=== PATIENT | female | born 1955 | race Caucasian/White ===

== ENCOUNTER 2018-03-04 12:50 | Outpatient (REF) | payer OTHER, SELFPAY ==
[2018-03-04 20:43] LABS: ALT 23 U/L (12-78); AST 26 U/L (15-37); Albumin 4.5 g/dL (3.4-5.0); Alkaline Phosphatase 82 U/L (46-116); Anion Gap 14.4 mmol/L (3-11); BUN 17 mg/dL (7-18); Bilirubin, Total 0.5 mg/dL (0.2-1.0); CO2 22.6 mmol/L (21.0-32.0); Calcium 9.9 mg/dL (8.5-10.1); Chloride 102 mmol/L (98-107); Cholesterol 266 mg/dL (50-200); Glucose 90 mg/dL (70-100); HDL Cholesterol 85 mg/dL (40-60); LDL CHOLESTEROL 151 mg/dL (<100); Potassium 4.9 mmol/L (3.5-5.1); Sodium 139 mmol/L (136-145); Total Protein 7.6 g/dL (6.4-8.2); Triglyceride 136 mg/dL (30-150)
[2018-03-04 20:48] LABS: Hemoglobin A1C 5.7 % (4.5-6.2)
== END 2018-03-04 12:51 ==
LOC: NCHCN 12:50
PROVIDERS: PCP Physician Assistant Medical; Visit Provider Physician Assistant Medical
DX: I10 Essential (primary) hypertension (principal); R79.89 Other specified abnormal findings of blood chemistry; R73.01 Impaired fasting glucose
CPT/HCPCS: 80053; 80061; 83721; 83036

== ENCOUNTER 2019-02-17 11:32 | Outpatient (REF) | payer MEDICARE, OTHER, SELFPAY ==
[2019-02-17 22:17] LABS: ALT 47 U/L (12-78); AST 35 U/L (15-37); Albumin 4.1 g/dL (3.4-5.0); Alkaline Phosphatase 78 U/L (46-116); Anion Gap 13.1 mmol/L (3-11); BUN 16 mg/dL (7-18); Bilirubin, Total 0.3 mg/dL (0.2-1.0); CO2 22.9 mmol/L (21.0-32.0); CREATININE 0.62 mg/dL (0.55-1.02); Calcium 9.7 mg/dL (8.5-10.1); Chloride 106 mmol/L (98-107); Glucose 102 mg/dL (70-100); Potassium 4.9 mmol/L (3.5-5.1); Sodium 142 mmol/L (136-145); Total Protein 7.2 g/dL (6.4-8.2)
[2019-02-17 22:40] LABS: Hemoglobin A1C 5.4 % (4.5-6.2)
== END 2019-02-17 11:52 ==
LOC: NCHCN 11:32
PROVIDERS: PCP Physician Assistant Medical; Visit Provider Physician Assistant Medical
DX: R73.01 Impaired fasting glucose (principal); I10 Essential (primary) hypertension; R79.89 Other specified abnormal findings of blood chemistry
CPT/HCPCS: 80053; 83036

== ENCOUNTER 2020-08-17 15:38 | Outpatient (REF) | payer MEDICARE, SELFPAY ==
[2020-08-17 16:20] LABS: ALT 39 U/L (14-59); AST 25 U/L (15-37); Albumin 4.4 g/dL (3.4-5.0); Alkaline Phosphatase 78 U/L (46-116); Anion Gap 7.6 mmol/L (3-11); BUN 19 mg/dL (7-18); Bilirubin, Total 0.3 mg/dL (0.2-1.0); CO2 26.4 mmol/L (21.0-32.0); CREATININE 0.79 mg/dL (0.55-1.02); Calcium 10.3 mg/dL (8.5-10.1); Calculated LDL 183 mg/dL (<100); Chloride 106 mmol/L (98-107); Cholesterol 282 mg/dL (<200); Glucose 107 mg/dL (74-106); HDL Cholesterol 77 mg/dL (40-60); Potassium 5.1 mmol/L (3.5-5.1); Sodium 140 mmol/L (136-145); Total Protein 7.4 g/dL (6.4-8.2); Triglyceride 114 mg/dL (<150)
== END 2020-08-17 15:58 ==
LOC: NCHCN 15:38
PROVIDERS: PCP Physician Assistant Medical; Visit Provider Physician Assistant Medical
DX: E78.5 Hyperlipidemia, unspecified (principal); I10 Essential (primary) hypertension
CPT/HCPCS: 80053; 80061

== ENCOUNTER 2021-08-15 20:16 | Outpatient (REF) | payer MEDICARE, SELFPAY ==
[2021-08-15 21:45] LABS: Hemoglobin A1C 5.3 % (<5.7)
[2021-08-15 21:49] LABS: ALT 48 U/L (14-59); AST 42 U/L (15-37); Albumin 4.4 g/dL (3.4-5.0); Alkaline Phosphatase 81 U/L (46-116); Anion Gap 13.1 mmol/L (3-11); BUN 12 mg/dL (7-18); Bilirubin, Total 0.4 mg/dL (0.2-1.0); CO2 23.9 mmol/L (21.0-32.0); CREATININE 0.7 mg/dL (0.55-1.02); Calcium 10.1 mg/dL (8.5-10.1); Chloride 106 mmol/L (98-107); Glucose 106 mg/dL (74-106); Potassium 3.8 mmol/L (3.5-5.1); Sodium 143 mmol/L (136-145); Total Protein 7.6 g/dL (6.4-8.2)
== END 2021-08-15 20:17 | disposition home or self-care (01) ==
LOC: NCHCN 20:16
PROVIDERS: PCP Physician Assistant Medical; Visit Provider Physician Assistant Medical
DX: R73.03 Prediabetes (principal); E78.5 Hyperlipidemia, unspecified; I10 Essential (primary) hypertension; R79.89 Other specified abnormal findings of blood chemistry
CPT/HCPCS: 80053; 83036

== ENCOUNTER 2022-08-30 13:13 | Outpatient (REF) | payer MEDICARE, OTHER, SELFPAY ==
[2022-08-30 15:25] LABS: HCT 35.7 % (36.0-46.0); HGB 12.3 g/dL (11.2-15.7); MCH 34.5 pg (27.0-33.0); MCHC 34.5 % (32.0-36.0); MCV 100 fL (80-95); MPV 11.9 fL (8.0-11.0); Platelet Count 240 10^3/uL (130-400); RBC 3.57 10^6/uL (3.93-5.22); RDW 13.3 % (11.7-14.6); RDW-SD 49.3 fL
[2022-08-30 15:42] LABS: ALT 41 U/L (14-59); AST 35 U/L (15-37); Albumin 4.4 g/dL (3.4-5.0); Alkaline Phosphatase 85 U/L (46-116); Anion Gap 11.8 mmol/L (3-11); BUN 11 mg/dL (7-18); Bilirubin, Total 0.4 mg/dL (0.2-1.0); CO2 24.2 mmol/L (21.0-32.0); CREATININE 0.7 mg/dL (0.55-1.02); Calcium 9.9 mg/dL (8.5-10.1); Chloride 105 mmol/L (98-107); Estimated GFR 93.56 (mL/min/1.73m2); Glucose 115 mg/dL (74-106); Sodium 141 mmol/L (136-145); Total Protein 7.9 g/dL (6.4-8.2)
[2022-08-30 15:49] LABS: Hemoglobin A1C 5.3 % (<5.7)
== END 2022-08-30 13:14 | disposition home or self-care (01) ==
LOC: NCHCN 13:13
PROVIDERS: PCP Physician Assistant Medical; Visit Provider Physician Assistant Medical
DX: R73.03 Prediabetes (principal); R79.89 Other specified abnormal findings of blood chemistry
CPT/HCPCS: 80053; 85027; 83036

== ENCOUNTER 2023-09-13 11:28 | Outpatient (CLI) | payer MEDICARE, OTHER, SELFPAY ==
[2023-09-13 11:00] LABS: HCT 35.2 % (36.0-46.0); HGB 12.5 g/dL (11.2-15.7); MCH 34.6 pg (27.0-33.0); MCHC 35.5 % (32.0-36.0); MCV 98 fL (80-95); MPV 10.4 fL (8.0-11.0); Platelet Count 241 10^3/uL (130-400); RBC 3.61 10^6/uL (3.93-5.22); RDW 12.6 % (11.7-14.6); RDW-SD 45.3 fL; WBC 9.21 10^3/uL (4.4-10.8)
[2023-09-13 11:12] LABS: Hemoglobin A1C 5.4 % (<5.7)
[2023-09-13 11:34] LABS: ALT 36 U/L (14-59); AST 30 U/L (15-37); Albumin 4.1 g/dL (3.4-5.0); Alkaline Phosphatase 81 U/L (46-116); Anion Gap 12.1 mmol/L (3-11); BUN 12 mg/dL (7-18); Bilirubin, Total 0.4 mg/dL (0.2-1.0); CO2 23.9 mmol/L (21.0-32.0); CREATININE 0.7 mg/dL (0.55-1.02); Calcium 10.2 mg/dL (8.5-10.1); Calculated LDL 132 mg/dL (<100); Chloride 104 mmol/L (98-107); Cholesterol 260 mg/dL (<200); Estimated GFR 92.98 (mL/min/1.73m2); Glucose 115 mg/dL (74-106); HDL Cholesterol 97 mg/dL (40-60); Sodium 140 mmol/L (136-145); Total Protein 7.8 g/dL (6.4-8.2); Triglyceride 156 mg/dL (<150)
== END 2023-09-13 11:29 | disposition home or self-care (01) ==
LOC: LBO 11:29
PROVIDERS: PCP Physician Assistant Medical; Visit Provider Physician Assistant Medical
DX: I10 Essential (primary) hypertension (principal); R73.03 Prediabetes
CPT/HCPCS: 36415; 80053; 80061; 85027; 83036

== ENCOUNTER 2024-11-19 17:00 | Outpatient (REF) | payer MEDICARE, BC, SELFPAY ==
[2024-11-19 17:04] LABS: Anion Gap 13.1 mmol/L (3-11); BUN 15 mg/dL (7-18); CO2 24.9 mmol/L (21.0-32.0); CREATININE 0.8 mg/dL (0.55-1.02); Calcium 10.6 mg/dL (8.5-10.1); Chloride 104 mmol/L (98-107); Estimated GFR 78.72 (mL/min/1.73m2); Glucose 118 mg/dL (74-106); Sodium 142 mmol/L (136-145)
== END 2024-11-19 17:01 | disposition home or self-care (01) ==
LOC: NCHCN 17:00
PROVIDERS: PCP Physician Assistant Medical; Visit Provider Physician Assistant Medical
DX: I10 Essential (primary) hypertension (principal)
CPT/HCPCS: 80048

== ENCOUNTER 2025-05-28 11:52 | Outpatient (CLI) | payer MEDICARE, BC, SELFPAY ==
[2025-05-28 12:03] LABS: HCT 33.1 % (36.0-46.0); HGB 11.6 g/dL (11.2-15.7); MCH 35.9 pg (27.0-33.0); MCHC 35.0 % (32.0-36.0); MCV 103 fL (80-95); MPV 10.1 fL (8.0-11.0); Platelet Count 253 10^3/uL (130-400); RBC 3.23 10^6/uL (3.93-5.22); RDW 13.8 % (11.7-14.6); RDW-SD 52.4 fL; WBC 8.74 10^3/uL (4.4-10.8)
[2025-05-28 12:32] LABS: ALT 35 U/L (14-59); AST 30 U/L (15-37); Albumin 3.9 g/dL (3.4-5.0); Alkaline Phosphatase 77 U/L (46-116); Anion Gap 11.5 mmol/L (3-11); BUN 9 mg/dL (7-18); Bilirubin, Total 0.3 mg/dL (0.2-1.0); CO2 25.5 mmol/L (21.0-32.0); Calcium 10.1 mg/dL (8.5-10.1); Chloride 101 mmol/L (98-107); Glucose 95 mg/dL (74-106); Potassium 4.1 mmol/L (3.5-5.1); Sodium 138 mmol/L (136-145); Total Protein 7.5 g/dL (6.4-8.2)
[2025-05-28 13:05] LABS: Vitamin D 25 Total 86 ng/mL (30-100)
[2025-05-28 23:53] LABS: Hepatitis C Ab w Rflx HCV PCR Negative (Negative)
== END 2025-05-28 11:53 | disposition home or self-care (01) ==
LOC: LBO 11:52
PROVIDERS: PCP Physician Assistant Medical; Visit Provider Physician Assistant Medical
DX: R74.8 Abnormal levels of other serum enzymes (principal); M85.80 Other specified disorders of bone density and structure, unspecified site; N18.9 Chronic kidney disease, unspecified
CPT/HCPCS: 36415; 80053; 82306; 85027; 86803; 83970; 84100